=== PATIENT | male | born 1960 | race Caucasian/White ===

== ENCOUNTER 2016-09-02 12:02 | Day surgery (SDC) | payer OTHER ==
[~2016-09-02] VITALS: Ht 167.6 cm; Wt 64.1 kg
[2016-09-02 13:39] VITALS: Ht 167.6 cm; Wt 64.1 kg
[2016-09-02] MEDS ORDERED: METAM PO (13:49)
[2016-09-02] MEDS ORDERED: MULTI PO (13:49)
[2016-09-02] MEDS ORDERED: GLUC100015 PO (13:49)
[2016-09-02 14:08] VITALS: BP 101/62; PULSE 68; RESP 14
[2016-09-02] MEDS ORDERED: LIDOCAINE 2% (SDV) 5 ML INJ ONE (15:16)
[2016-09-02] MEDS ORDERED: PROPOFOL 60 ML ONE (15:16)
[2016-09-02 16:15] VITALS: BP 108/76; PULSE 68; RESP 16
--- NOTE | 2016-09-02 20:21 | GILP ---
DATE OF PROCEDURE: NAME OF PROCEDURE: Colonoscopy to cecum. SURGEON: Thee Andres MD. HISTORY AND INDICATIONS: The patient is being evaluated for colorectal cancer screening, given his significant family history of colon cancer. PREMEDICATION: Monitored anesthesia care by anesthesiologist. INSTRUMENT USED: Olympus colonoscope. PREPARATION: Adequate. TECHNIQUE: After informed consent, with the patient/relatives understanding the procedure, its indic ations potential risks and complications, including but not limited to: allergic reaction, bleeding, perforation, infection, missed lesions, and after all pertinent questions were answered to the usha ent's satisfaction, the patient/relatives signed the witnessed informed consent. Following this, premedication was administered slowly IV push by under careful cardiovascular and re spiratory monitoring with pulse oximetry, automatic blood pressure and slitter scorer cut off operator. Once the sedati ve effect was achieved, the patient was placed in the left lateral decubitus position, digital recta l examination was performed. The colonoscope was then introduced and advanced under visual control throughout all segments of the colon including: the rectum, sigmoid, descending colon, splenic flexu re, transverse colon, hepatic flexure, ascending colon and finally reaching the cecum which was jewel rly identified by transillumination, finger indentation and the ileocecal valve. Careful examinatio n of the mucosa of the lower gastrointestinal tract both on insertion as well as withdrawal of the i nstrument disclosed the following findings: Rectal Examination: No evidence of perirectal disease, no masses. Colonic Mucosa: The colonic mucosa unremarkable throughout. The colon is somewhat tortuous and redu ndant, but the mucosa appears unremarkable throughout. The ileocecal valve was clearly identified a nd appears unremarkable. The instrument was withdrawn reexamining the mucosa in detail. No additio nal abnormalities are identified with the exception of mild melanosis coli in the area of distal sig moid and rectum as well as moderate sized internal hemorrhoids. The instrument was then withdrawn, the patient tolerated the procedure well and was transferred out of the Endoscopy Suite awake and in good condition to continue recovery under observation. IMPRESSION: 1. Mild melanosis coli. 2. Moderate-sized internal hemorrhoids. 3. Family history of colon cancer. PLAN: The patient will follow up as an outpatient. Annual Hemoccult stool testing is recommended. Screening colonoscopy for a high risk individual is recommended in 5 years. Dictated By: THEE ANDRES MS/LIBBY Conf#: [id number] DID#: [id number] CC: THEE ANDRES;*[facility] [place]*
== END 2016-09-02 18:39 | disposition home or self-care (01) ==
LOC: GIL 12:02
PROVIDERS: ATTEND Internal Medicine Gastroenterology
DX: Z12.11 Encounter for screening for malignant neoplasm of colon (principal); K63.89 Other specified diseases of intestine; K64.8 Other hemorrhoids
CPT/HCPCS: 45378; Z7610

== ENCOUNTER 2016-09-27 00:39 | Emergency (ER) | payer OTHER ==
[~2016-09-27] VITALS: Ht 167.6 cm; Wt 64.5 kg
[~2016-09-27 00:39] MED LIST: GLUC100015 PO; METAM PO; MULTI PO
[2016-09-27 00:48] VITALS: Ht 167.6 cm; Wt 64.5 kg
--- NOTE | 2016-09-27 02:26 | RADRPT ---
PROCEDURE: Ultrasound examination of the right lower extremity with Doppler. CLINICAL INDICATION: Right leg pain and swelling. TECHNIQUE: Multiple sonographic images of the right lower extremity were performed with harden scal e and color Doppler. COMPARISON: None. FINDINGS: The right common femoral, superficial femoral and popliteal veins demonstrate normal color flow, wav eforms, compression and response augmentation. There is no evidence of deep venous thrombosis. IMPRESSION: No evidence of deep venous thrombosis within the right lower extremity. .Aravind Barclay MD, Date Time Electronically viewed and signed by .Aravind Barclay MD, on 09/27/2016 02:26 .T/
--- NOTE | 2016-09-27 02:26 | ERD ---
ER Documentation Chief Complaint Date/Time DATE: 09/27/16 TIME: 02:24 Chief Complaint RLL CALF PAIN. STATES HAD DEEP TISSUE MASSAGE LAST WEEK. HPI 55-year-old male presents to emergency department for complaint of right lower leg, calf pain started one week ago, patient had a deep tissue massage on the affected area, started to have the pain afterwards. Patient described the pain as throbbing pain, 6/10 scale, is worse the worst touching the area, it is resolved when walking. Patient denies any redness or swelling, denies any fever or chills. Patient has a history of pulmonary embolism, is worried about a DVT. Patient did not have any direct trauma on affected area. ROS All systems reviewed and are negative except as per history of present illness. Medications Home Meds Reported Medications Multivitamins* (Theragran*) 1 Tab Tab, 1 TAB PO DAILY, TAB 09/02/16 Psyllium* (Metamucil*) 1 Pkt Susp, 1 PKT PO BID, PACKET 09/02/16 Glucosamine Sulfate 2KCL (GLUCOSAMINE) 1,000 Mg Tablet, 1000 MG PO, TAB 09/02/16 Allergies Allergies: Coded Allergies: Penicillins (Verified Allergy, Unknown, rash, 08/08/14) PMhx/Soc History of Surgery: Yes (knee surgery, collar bone surgery) Anesthesia Reaction: No Hx Neurological Disorder: No Hx Respiratory Disorders: Yes (hx pulmonary embolism 2014) Hx Cardiac Disorders: No Hx Psychiatric Problems: Yes (anxiety) Hx Miscellaneous Medical Probl: No Hx Alcohol Use: Yes (occasional) Hx Substance Use: No Hx Tobacco Use: No Smoking Status: Never smoker FmHx Family History: No coronary disease, No diabetes, No other Physical Exam Vitals Vital Signs Date Time Temp Pulse Resp B/P Pulse Ox O2 Delivery O2 Flow Rate FiO2 09/27/16 00:48 97.0 72 18 127/81 97 Physical Exam GENERAL: The patient is well developed and appropriate for usual state of health, in no apparent distress. CHEST: Clear to auscultation bilaterally. There are no rales, wheezes or rhonchi. HEART: Regular rate and rhythm. No murmurs, clicks, rubs or gallops. No S3 or S4. ABDOMEN: Soft, nontender and nondistended. Good bowel sounds. No rebound or guarding. No gross peritonitis. No gross organomegaly or masses. No Salazar sign or McBurney point tenderness. BACK: No midline or flank tenderness. EXTREMITIES: No tenderness on palpation on the right calf area, no erythema and no swelling noted ecchymosis noted. Negative Homans sign. Equal pulses bilaterally. Full range of motion without any difficulty or restriction.. Grossly neurovascularly intact. NEURO: Alert and oriented. Cranial nerves 2-12 intact. Motor strength in all 4 extremities with 5/5 strength. Sensation grossly intact. Normal speech and gait. SKIN: There is no apparent rash or petechia. The skin is warm and dry. HEMATOLOGIC AND LYMPHATIC: There is no evidence of excessive bruising or lymphedema. No gross cervical, axillary, or inguinal lymphadenopathy. Results 24 hrs PROCEDURE: Ultrasound examination of the right lower extremity with Doppler. CLINICAL INDICATION: Right leg pain and swelling. TECHNIQUE: Multiple sonographic images of the right lower extremity were performed with harden scale and color Doppler. COMPARISON: None. FINDINGS: The right common femoral, superficial femoral and popliteal veins demonstrate normal color flow, waveforms, compression and response augmentation. There is no evidence of deep venous thrombosis. IMPRESSION: No evidence of deep venous thrombosis within the right lower extremity. .Aravind Barclay MD, MD Date Time Electronically viewed and signed by .Aravind Barclay MD, MD on 09/27/2016 02:26 .T/ CC: NORMAN GONZÁLES FIRST LEVELER Procedures/MDM Medical Decision Making: Patient's pain is most likely consistent with a calf contusion or a strain. There is no suspicion for neurovascular compromise. Patient has intact sensation and circulation of the affected extremity. There is low suspicion for septic arthritis. Patient does not have any fever. Patient does not have any deep venous thrombosis, x-rays are not necessary at this time. Disposition: Home. Patient is given prescription for ibuprofen for pain, Flexeril muscle spasms. Patient was advised to elevate the affected area and apply ice on affected area. Patient was advised that if symptoms are worse, numbness, tingling, high fever, unable to move joint, worsening symptoms, to return to emergency department immediately. Otherwise, patient is advised to follow up with the primary care doctor in 5-7 days for reevaluation of symptoms. Departure Diagnosis: Primary Impression: Right calf pain Condition: Stable Patient Instructions: Lower Body Exercises: Calf Stretch Additional Instructions: Patient is given prescription for ibuprofen for pain, Flexeril muscle spasms. Patient was advised to elevate the affected area and apply ice on affected area. Patient was advised that if symptoms are worse, numbness, tingling, high fever, unable to move joint, worsening symptoms, to return to emergency department immediately. Otherwise, patient is advised to follow up with the primary care doctor in 5-7 days for reevaluation of symptoms. NORMAN GONZÁLES NP Sep 27, 2016 02:26
[2016-09-27] MEDS ORDERED: IBUP-1542 PO (02:46)
[2016-09-27] MEDS ORDERED: CYCL-319 PO (02:46)
[2016-09-27 03:35] VITALS: BP 109/75; PULSE 69; RESP 16
== END 2016-09-27 03:20 | disposition home or self-care (01) ==
LOC: FTE 00:39
DX: M79.661 Pain in right lower leg (principal)
CPT/HCPCS: 93971; Z7502

== ENCOUNTER 2017-03-26 17:23 | Emergency (ER) | END 2017-03-27 02:01 | disposition home or self-care (01) ==

== ENCOUNTER 2017-05-21 01:42 | Emergency (ER) | END 2017-05-21 06:38 | disposition home or self-care (01) ==